=== PATIENT | female | born 1940 | race African-American/Black ===

== ENCOUNTER 2016-12-03 16:45 | Emergency (ER) | payer MEDICARE, BC ==
[~2016-12-03] VITALS: Ht 160 cm; Wt 73.0 kg
[2016-12-03 17:29] VITALS: BP 119/69
== END 2016-12-03 17:45 | disposition home or self-care (01) ==
LOC: ER 17:21
DX: L03.115 Cellulitis of right lower limb (principal); Z88.1 Allergy status to other antibiotic agents; I10 Essential (primary) hypertension; M19.90 Unspecified osteoarthritis, unspecified site
CPT/HCPCS: 99283